=== PATIENT | female | born 1980 | race Caucasian/White ===

== ENCOUNTER 2018-09-12 18:01 | Emergency (ER) | payer OTHER ==
[~2018-09-12] VITALS: Ht 157.5 cm; Wt 57.6 kg
[2018-09-12 18:45] LABS: PCO2 31.3 mmHg (35.0-45.0); pH 7.446 (7.340-7.450)
[2018-09-12 18:50] LABS: PO2 342.5 mmHg (75.0-100.0)
[2018-09-12 20:25] VITALS: BP 138/87
== END 2018-09-12 20:28 | disposition home or self-care (01) ==
LOC: M.ERS 18:01
PROVIDERS: Nurse Practitioner Family
DX: T58.91XA Toxic effect of carbon monoxide from unspecified source, accidental (unintentional), initial encounter (principal); Y92.009 Unspecified place in unspecified non-institutional (private) residence as the place of occurrence of the external cause; R11.2 Nausea with vomiting, unspecified; Z90.49 Acquired absence of other specified parts of digestive tract; Z88.8 Allergy status to other drugs, medicaments and biological substances

== ENCOUNTER 2019-11-24 17:10 | Emergency (ER) | payer OTHER ==
[~2019-11-24] VITALS: Ht 157.5 cm; Wt 56.7 kg
[2019-11-24 17:41] LABS: URINE BILIRUBIN NEGATIVE (Negative); URINE BLOOD 3+ (Negative); URINE COLOR YELLOW; URINE GLUCOSE-RANDOM NEGATIVE (Negative); URINE KETONES NEGATIVE (Negative); URINE LEUKOCYTES-REFLEX TRACE (Negative); URINE NITRITE-REFLEX NEGATIVE (Negative); URINE PROTEIN NEGATIVE (Negative); URINE UROBILINOGEN 0.2 E.U./dl (0.2-1.0)
[2019-11-24 17:42] LABS: URINE CLARITY HAZY
[2019-11-24 17:46] LABS: SQUAMOUS >10 Many /LPF (0-3)
[2019-11-24 17:47] LABS: CASTS None Seen /LPF (None Seen); CRYSTALS None Seen /LPF (None Seen); URINE RBC >20 Many /HPF (0-2); URINE WBC-REFLEX 0-5 Rare /HPF (0-5)
[2019-11-24 18:03] LABS: ABSOLUTE BASOPHILS 0.1 thou/uL (0.0-0.2); ABSOLUTE EOSINOPHILS 0.2 thou/uL (0.0-0.7); ABSOLUTE LYMPHOCYTES 2.5 thou/uL (0.8-5.3); ABSOLUTE MONOCYTES 0.7 thou/uL (0.0-1.2); ABSOLUTE NEUTROPHILS 4.5 thou/uL (1.6-8.1); BASOPHILS 0.9 %; EOSINOPHILS 2.4 %; HEMOGLOBIN 13.5 gm/dL (12.0-15.0); LYMPHOCYTES 31.6 %; MCH 28.8 pg (26.0-34.0); MCHC 33.6 g/dL (28.0-37.0); MCV 85.5 fL (80.0-100.0); MONOCYTES 8.4 %; MPV 9.4 fl. (7.2-11.1); NUCLEATED RBCS 0 /100WBC; PLATELET COUNT* 268 thou/uL (150-400); POLYS 56.7 %; RBC 4.68 mil/uL (4.20-5.00); RDW-CV 13.3 % (10.5-14.5); WBC 7.8 thou/uL (4.0-11.0)
[2019-11-24 18:12] LABS: CALCIUM 8.9 mg/dL (8.5-10.1); POTASSIUM 4.2 mmol/L (3.5-5.1)
[2019-11-24 18:16] LABS: TOTAL BILIRUBIN 0.3 mg/dL (<0.1-1.0); TOTAL PROTEIN 8.3 g/dL (6.4-8.2)
[2019-11-24] MEDS ORDERED: IBUPROFEN 600600 M1 PO (18:26)
[2019-11-24] MEDS ORDERED: NORCO 5-325 TA1 EAC1 PO (18:26)
[2019-11-24] MEDS ORDERED: CIPRO500 M1 PO (18:26)
[2019-11-24] MEDS ORDERED: ONDANSETRON HCL4 M2 PO (18:26)
[2019-11-24] MEDS ORDERED: FLOMAX0.4 MG PO (18:27)
[2019-11-24 19:11] VITALS: BP 100/78
== END 2019-11-24 19:11 | disposition home or self-care (01) ==
LOC: M.ERS 17:10
PROVIDERS: Nurse Practitioner Family
DX: N13.30 Unspecified hydronephrosis (principal); N20.1 Calculus of ureter; Z90.49 Acquired absence of other specified parts of digestive tract; Z98.51 Tubal ligation status; Z88.5 Allergy status to narcotic agent